=== PATIENT | male | born 1980 | race Caucasian/White ===

== ENCOUNTER 2022-04-15 16:01 | Emergency (ER) | payer SELFPAY ==
[~2022-04-15] VITALS: Ht 167.6 cm; Wt 74.8 kg
[2022-04-15 16:11] VITALS: BP 150/108
--- NOTE | 2022-04-15 16:31 | NUR ---
called once, no answer
--- NOTE | 2022-04-15 17:01 | NUR ---
pt ambulated to bed 05 at this time
--- NOTE | 2022-04-15 17:29 | NUR ---
41 Y/O M BIB SELF C/O ABD PAIN 8 SINCE YESTERDAY. PT ALSO C/O N/V/D AND LOW APPETITE. C/O LOWER BACK PAIN. NKA OR PMH
[2022-04-15] MEDS ORDERED: ONDANSETRON 4 MG/2 ML VIAL IVP ONE (17:30)
[2022-04-15] MEDS ORDERED: NACL 0.9% 1,000 ML IV ONE (17:30)
[2022-04-15] MEDS ORDERED: MORPHINE SULFATE 4 MG/ML SYR IVP ONE (17:30)
[2022-04-15 17:44] LABS: BASOPHILS % (AUTO) 0.3 % (0.0-2.0); HEMATOCRIT 46.7 % (36-52); HEMOGLOBIN 16.4 g/dL (12.0-18.0); LYMPHOCYTES # (AUTO) 1.5 K/uL (2.0-11.5); LYMPHOCYTES % (AUTO) 11.6 % (20.5-51.1); MEAN CORPUSCULAR HEMOGLOBIN 32 pg (27-31); MEAN CORPUSCULAR HGB CONC 35 g/dL (33-37); MEAN CORPUSCULAR VOLUME 92.3 fL (80-94); MONOCYTES # (AUTO) 0.6 K/uL (0.8-1.0); MONOCYTES % (AUTO) 4.9 % (1.7-9.3); NEUTROPHILS # (AUTO) 10.6 K/uL (1.8-7.7); NEUTROPHILS % (AUTO) 83.2 % (42.2-75.2); PLATELET COUNT (AUTO) 194 K/uL (140-450); RED BLOOD CELL COUNT(AUTO) 5.06 MIL/uL (4.20-6.10); RED CELL DISTRIBUTION WIDTH 12.4 % (11.6-13.7); WHITE BLOOD COUNT (AUTO) 12.7 K/uL (4.8-10.8)
[2022-04-15 18:05] LABS: ALBUMIN 4.2 g/dL (3.4-5.0); ANION GAP 11.5 (8-16); CARBON DIOXIDE 27.1 mmol/L (21-32); CREATININE 1.1 mg/dL (0.6-1.3); POTASSIUM 3.6 mmol/L (3.5-5.1); TOTAL BILIRUBIN 0.6 mg/dL (0.0-1.0)
--- NOTE | 2022-04-15 18:28 | NUR ---
41/M PRESENTS TO ED WITH C/O LOWER ABDOMINAL PAIN, SUBJECTIVE FEVERS AND CHILLS AT HOME X2 DAYS. STATING DAUGHTER AT HOME SICK WITH SIMILAR SYMPTOMS, PATIENT DENIES CP, SOB. REPORTS DECREASE IN APPETITE TODAY.
--- NOTE | 2022-04-15 18:30 | NUR ---
PT TO CT SCAN.
[2022-04-15 19:04] LABS: APPEARANCE,URINE CLEAR (CLEAR); BILIRUBIN,URINE NEGATIVE (NEGATIVE); BLOOD, URINE NEGATIVE (NEGATIVE); COLOR,URINE DARK YELLOW (YELLOW); LEUKOCYTE ESTERASE ,URINE NEGATIVE (NEGATIVE); NITRITE, URINE NEGATIVE (NEGATIVE); UGLUCOSE NEGATIVE (NEGATIVE)
--- NOTE | 2022-04-15 19:15 | NUR ---
GAVE REPORT TO MARITA MACKENZIE.
--- NOTE | 2022-04-15 19:30 | NUR ---
HANDOFF GIVEN TO GURDEEP CARTER
[2022-04-15] MEDS ORDERED: ONDA-188 SL (20:31)
[2022-04-15 20:45] VITALS: BP 108/74
== END 2022-04-15 20:45 | disposition home or self-care (01) ==
LOC: MED 16:01
DX: K52.9 Noninfective gastroenteritis and colitis, unspecified (principal); Z20.822 Contact with and (suspected) exposure to COVID-19
CPT/HCPCS: 36415; 74177; 80053; 81003; 83690; 85025; 87426; 87804; 96361; 96374; 96375; 99285; J2270; J2405; J7030; Q9967